=== PATIENT | female | born 1950 | race Native Hawaiian/Other Pacific Islander ===

== ENCOUNTER 2020-05-15 12:25 | Outpatient (CLI) | payer OTHER ==
[2020-05-15 12:41] LABS: PLATELET COUNT 187 K/uL (152-353)
[2020-05-15 13:14] LABS: POTASSIUM 4.1 mmol/L (3.6-5.2)
== END 2020-05-15 19:22 | disposition home or self-care (01) ==
LOC: LAB 12:25
PROVIDERS: ATTEND Nurse Practitioner Family
DX: Z00.00 Encounter for general adult medical examination without abnormal findings (principal); E11.9 Type 2 diabetes mellitus without complications; E03.8 Other specified hypothyroidism; Z79.899 Other long term (current) drug therapy; R53.83 Other fatigue; R53.81 Other malaise; E53.8 Deficiency of other specified B group vitamins; E55.9 Vitamin D deficiency, unspecified
CPT/HCPCS: 80053; 80061; 82306; 82607; 83036; 84439; 84443; 85027